=== PATIENT | male | born 2000 | race Caucasian/White ===

== ENCOUNTER 2020-04-30 10:19 | Emergency (ER) | payer OTHER, SELFPAY ==
--- NOTE | ~2020-04-30 | CT_ITS ---
EXAMINATION: CT brain wo con EXAM DATE: 04/30/2020 11:06 INDICATION: Seizure today. History of seizures. TECHNIQUE: Spiral CT of the head was performed without contrast. Axial, coronal and sagittal images were reviewed. The dose-length product (DLP) for this examination was 605.33 mGy-cm. The exposure w as tailored according to patient size, and iterative reconstruction (ASIR) was used as additional dos e reduction technique. There is no prior study for comparison. FINDINGS: There is no acute intraparenchymal hemorrhage. No evidence of intraparenchymal brain mass lesion. No evidence of acute infarction. There is no mass effect or midline shift. The ventricles are normal in size. There are no extra-axial collections. There are no acute calvarial fractures. T he orbits are unremarkable. Soft tissue is unremarkable. The visualized sinuses and mastoid air renan ls are well aerated. IMPRESSION: 1. No acute intracranial findings. Reviewed, dictated and finalized at location B.
[2020-04-30 10:23] VITALS: BP 101/64; PULSE 100; RESP 14; TEMP 36.9; O2SAT 97
--- NOTE | 2020-04-30 10:27 | ECG_ITS ---
Measurements Intervals [place] Rate: 90 P: 69 [place]: 130 QRS: 94 QRSD: 98 T: 73 QT: 332 QTc: 407 Interpretive Statements SINUS RHYTHM RIGHT AXIS DEVIATION MINIMAL Q WAVES- INFERIOR LEADS BORDERLINE ECG Electronically Signed On 04-30-2020 11:20:33 CDT by Daniel Kidd D.O.
[2020-04-30 10:45] VITALS: BP 101/64; PULSE 100; RESP 17; TEMP 36.9; O2SAT 97
[2020-04-30 10:50] LABS: Hematocrit 42.2 % (40.0-54.0); Mean Corpuscular HGB Conc 33.2 g/dL (32.0-36.0); Mean Corpuscular Hemoglobin 29.5 pg (27.0-31.0); Mean Platelet Volume 9.7 fl (8.7-11.0); Platelet Count Result 204 K/mm3 (150-420); Red Blood Count 4.74 M/mm3 (4.70-6.10); Red Cell Distribution Width 13.2 % (11.6-14.4); White Blood Count 8.2 K/mm3 (4.8-10.8)
[2020-04-30 11:06] LABS: Alanine Aminotransferase 20 U/L (16-63); Albumin Level 3.5 g/dL (3.4-5.0); Alkaline Phosphatase 68 U/L (46-116); Anion Gap 8 mmol/L (8-16); Aspartate Amino Transferase 18 U/L (15-37); Bilirubin,Total 0.3 mg/dL (0.00-1.00); Blood Urea Nitrogen 13 mg/dL (7-18); Calcium 9.1 mg/dL (8.5-10.1); Carbon Dioxide 28 mmol/L (21-32); Chloride 104 mmol/L (98-108); Creatine Kinase 125 U/L (39-308); Estimated CRCL calculation 78 ml/min; Estimated Glomerular Filt Rate > 60; Glucose 90 mg/dL (70-99); Osmolality Calculated 290 mOsm/kg (285-295); Sodium 140 mmol/L (136-145); Total Protein 7.4 g/dL (6.4-8.2)
[2020-04-30 11:25] LABS: Add Urine Microscopic? NO; Appearance Urine Clear (Clear); Bilirubin Urine Negative (Negative); Blood Urine Negative (Negative); Color Urine Yellow (Yellow); Glucose Urine UA Negative (Negative); Ketones Urine Negative (Negative); Leukocyte Esterase Ur Negative (Negative); Nitrate Urine Negative (Negative); Protein Urine Negative (Negative); Specific Grav Ur <= 1.005 (1.010-1.020); Urobilinogen Urine 0.2 mg/dL (0.2-1.0); pH Urine 6.5 (5.0-8.0)
[2020-04-30] MEDS: SODIUM CHLORIDE 0.9% IV 1,000 ML 999 ML IV CONT (11:25)
--- NOTE | 2020-04-30 11:45 | ED.GENADULT ---
HPI - General Adult General Chief complaint: Seizure Stated complaint: Ambulance Source: patient Mode of arrival: ambulatory Limitations: no limitations History of Present Illness HPI narrative: this is a 19-year-old male with a history of seizures currently on seizure medication, while at work developed the seizure witnessed lasting about 8 minutes with no bowel or bladder dysfunction no tongue biting currently is resting comfortable, no current as seizure activity, no headaches no nausea vomiting no fever chills no chest pain no shortness of breath no dysuria no flank pain. Patient has a primary care physician and currently prescribed Depakote for his seizures. Onset (ago): hour(s) Associated symptoms: seizure ( Witnessed lasting about 8 minutes) Related Data Home Medications Medication Instructions Recorded Confirmed divalproex 500 mg PO BID 04/30/20 04/30/20 olanzapine 5 mg PO HS 04/30/20 04/30/20 oxcarbazepine 300 mg PO DAILY 04/30/20 04/30/20 trazodone 100 mg PO HS 04/30/20 04/30/20 Allergies Allergy/AdvReac Type Severity Reaction Status Date / Time No Known Allergies Allergy Unverified 12/07/12 07:31 Review of Systems Review of Systems: All systems reviewed & are unremarkable except as noted in HPI and below PMFSH Past Medical History Medical History Seizures Exam Const: General: cooperative, healthy appearing, comfortable, no acute distress, well developed, alert, awake and Physically active HENMT: Head: normal to inspection Ears: hearing grossly normal bilaterally General nose exam: Normal external nose present Face and sinus: normal facial exam Mouth: Yes Normal oral and palatal mucosa present Eyes: General: appearance normal, both eyes and all related structures Visual Snyder: normal visual snyder by confrontation EOM: EOMs intact bilaterally Neck: Neck: normal visual inspection, full ROM, no lymphadenopathy and no meningeal signs Chest: Chest palpation & inspection: normal inspection of the chest and normal palpation of entire chest wall Resp: Effort & Inspection: normal respiratory effort and able to speak in complete sentences Auscultation: clear to auscultation bilaterally Cardio: Jugular venous distension: no JVD Palpation: normal PMI Rate: regular rate Rhythm: regular rhythm GI: Inspection: normal to inspection Auscultation: normal bowel sounds and normoactive bowel sounds Back/Spine/Pelvis: Back: no CVA tenderness Skin: General skin exam: normal color and no rashes or lesions noted Neuro: General: oriented to person, oriented to place, oriented to time, patient oriented x3 and gait normal Extrem: General: normal to inspection, full ROM and capillary refill normal Psych: Appearance: grossly normal Mental Status: mental status grossly normal Speech and movement: Normal speech and movement present Course Course Emergency Course: patient resting comfortably no acute symptoms currently no seizure activity no headaches no nausea or vomiting. Vital Signs Vital signs: Vital Signs Temperature 36.9 C 04/30/20 10:23 Pulse Rate 100 04/30/20 10:23 Respiratory Rate 14 04/30/20 10:23 Blood Pressure 101/64 04/30/20 10:23 Pulse Oximetry 97 04/30/20 10:23 Temperature 36.9 C 04/30/20 10:45 Pulse Rate 100 04/30/20 10:45 Respiratory Rate 17 04/30/20 10:45 Blood Pressure 101/64 04/30/20 10:45 Pulse Oximetry 97 04/30/20 10:45 Medical Decision Making Vital Signs Vital Signs: Vital Signs Temperature 36.9 C 04/30/20 10:23 Pulse Rate 100 04/30/20 10:23 Respiratory Rate 14 04/30/20 10:23 Blood Pressure 101/64 04/30/20 10:23 Pulse Oximetry 97 04/30/20 10:23 Temperature 36.9 C 04/30/20 10:45 Pulse Rate 100 04/30/20 10:45 Respiratory Rate 17 04/30/20 10:45 Blood Pressure 101/64 04/30/20 10:45 Pulse Oximetry 97 04/30/20 10:45 Lab Data Result diagrams:
[2020-04-30 11:56] LABS: Amphetamine Screen Urine Negative (Negative); Barbiturate Screen Urine Negative (Negative); Benzodiazepines Screen Urine Negative (Negative); Cannabinoid Screen Urine Positive (Negative); Cocaine Screen Urine Negative (Negative); Methadone Screen Urine Negative (Negative); Opiate Screen Urine Negative (Negative); Phencyclidine Screen Urine Negative (Negative)
[2020-04-30 12:06] VITALS: BP 106/61
== END 2020-04-30 12:00 ==
PROVIDERS: Emergency Provider Emergency Medicine
DX: G40.909 Epilepsy, unspecified, not intractable, without status epilepticus (principal)
CPT/HCPCS: 36415; 70450; 80053; 80307; 81003; 82550; 85027; 93005; 96360; 99283; 99284; J7030

== ENCOUNTER 2022-06-10 18:16 | Emergency (ER) | payer OTHER, SELFPAY ==
[2022-06-10 18:20] VITALS: BP 120/80; PULSE 120; RESP 16; TEMP 36.4; O2SAT 98
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
[2022-06-10] MEDS: LIDOCAINE HCL 1% LOCAL INJ 10 ML VIAL INFILTRATE (18:35)
[2022-06-10] MEDS: CLINDAMYCIN HCL 150 MG CAP 300 MG PO (18:59)
--- NOTE | 2022-06-10 19:02 | PC.NURSE ---
WOUND CLEANED, I & D COMPLETED, AND DRESSED PER ERP.
== END 2022-06-10 19:00 | disposition home or self-care (01) ==
LOC: CHSED 18:54
PROVIDERS: Emergency Provider Emergency Medicine
DX: L03.011 Cellulitis of right finger (principal)
CPT/HCPCS: 26010; 99283; A9270

== ENCOUNTER 2022-11-06 16:36 | Emergency (ER) | payer OTHER, SELFPAY ==
[2022-11-06 16:40] VITALS: BP 92/50; PULSE 86; RESP 20; TEMP 36.9; O2SAT 98
[2022-11-06 16:50] VITALS: BP 92/50; PULSE 86; TEMP 36.9; O2SAT 98
--- NOTE | 2022-11-06 17:37 | ECG_ITS ---
Measurements Intervals [place] Rate: 84 P: 84 [place]: 123 QRS: 91 QRSD: 96 T: 79 QT: 368 QTc: 436 Interpretive Statements SINUS RHYTHM BORDERLINE RIGHT AXIS DEVIATION [QRS AXIS > 90] POSSIBLE RIGHT VENTRICULAR CONDUCTION DELAY [RSR (QR) IN V1/V2] BORDERLINE ECG COMPARED TO ECG 04/30/2020 10:42:45 NO SIGNIFICANT CHANGES Electronically Signed On 11-07-2022 15:45:17 [employer] by Zac Hawkins M.D.
[2022-11-06 18:31] LABS: Basophils Absolute Auto 0.05 K/mm3 (0.00-0.10); Basophils Percent Auto 0.5 % (0.0-1.0); Eosinophils Absolute Auto 0.26 K/mm3 (0.02-0.50); Eosinophils Percent Auto 2.8 % (1.0-6.0); Hematocrit 43.8 % (40.0-54.0); Immature Granulocyte Absolute 0.03 K/mm3 (0.00-0.00); Immature Granulocyte Percent A 0.3 % (0.0-0.0); Lymphocytes Absolute Auto 2.15 K/mm3 (1.10-4.50); Lymphocytes Percent Auto 22.8 % (18.0-42.0); Mean Corpuscular HGB Conc 34.2 g/dL (32.0-36.0); Mean Corpuscular Hemoglobin 29.4 pg (27.0-31.0); Mean Corpuscular Volume 85.9 fL (78.0-102.0); Mean Platelet Volume 9.4 fl (8.7-11.0); Monocytes Absolute Auto 0.84 K/mm3 (0.10-0.90); Monocytes Percent Auto 8.9 % (2.0-11.0); Neutrophils Absolute Auto 6.1 K/mm3 (1.7-7.2); Neutrophils Percent Auto 64.7 % (50.0-70.0); Platelet Count Result 261 K/mm3 (150-420); Red Cell Distribution Width 12.3 % (11.6-14.4); White Blood Count 9.4 K/mm3 (4.8-10.8)
[2022-11-06 18:32] LABS: Appearance Urine Clear (Clear); Bilirubin Urine Negative (Negative); Blood Urine Negative (Negative); Color Urine Yellow (Yellow); Glucose Urine UA Negative (Negative); Ketones Urine Negative (Negative); Leukocyte Esterase Ur Negative LEU/UL (Negative); Nitrate Urine Negative (Negative); Protein Urine Negative (Negative); Specific Grav Ur 1.025 (1.010-1.020); Urobilinogen Urine 0.2 mg/dL (0.2-1.0); pH Urine 6.5 (5.0-8.0)
[2022-11-06 18:42] LABS: Add Urine Microscopic? NO
[2022-11-06 18:44] VITALS: BP 96/59; PULSE 79; RESP 20; TEMP 36.7; O2SAT 98
[2022-11-06 18:54] LABS: Alanine Aminotransferase 36 U/L (16-63); Alkaline Phosphatase 79 U/L (46-116); Anion Gap 8 mmol/L (8-16); Aspartate Amino Transferase 23 U/L (15-37); Bilirubin,Total 0.3 mg/dL (0.00-1.00); Blood Urea Nitrogen 24 mg/dL (7-18); Calcium 9.7 mg/dL (8.5-10.1); Carbon Dioxide 30 mmol/L (21-32); Chloride 99 mmol/L (98-108); Estimated CRCL calculation 83 ml/min; Estimated Glomerular Filt Rate > 60; Glucose 108 mg/dL (70-99); Osmolality Calculated 289 mOsm/kg (285-295); Potassium 4.2 mmol/L (3.5-5.1); Salicylate 1.6 mg/dL (2.8-20.0); Sodium 137 mmol/L (136-145); Thyroid Stimulating Hormone 2.48 uIU/mL (0.36-3.74); Total Protein 8.1 g/dL (6.4-8.2)
[2022-11-06 18:58] LABS: Amphetamine Screen Urine Negative (Negative); Barbiturate Screen Urine Negative (Negative); Benzodiazepines Screen Urine Negative (Negative); Cannabinoid Screen Urine Positive (Negative); Cocaine Screen Urine Negative (Negative); Methadone Screen Urine Negative (Negative); Opiate Screen Urine Negative (Negative); Phencyclidine Screen Urine Negative (Negative)
[2022-11-06 19:02] LABS: Acetaminophen < 2 ug/mL (10-30); Ethanol < 3 mg/dL (0-6)
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
[2022-11-06 22:17] VITALS: BP 136/86; PULSE 69; RESP 20; TEMP 36.7; O2SAT 99
== END 2022-11-06 22:24 | disposition home or self-care (01) ==
PROVIDERS: Emergency Provider Emergency Medicine
DX: F41.9 Anxiety disorder, unspecified (principal); Z73.3 Stress, not elsewhere classified; G40.909 Epilepsy, unspecified, not intractable, without status epilepticus
CPT/HCPCS: 36415; 80053; 80307; 81003; 84443; 85025; 93005; 99283